=== PATIENT | male | born 1960 | race Caucasian/White ===

== ENCOUNTER → 2018-11-12 | Outpatient (CLI) | payer BC ==
[~2018-11-12] MED LIST: ALPRAZOLAM1 MG PO; ASPIRIN81 MG; BUSPIRONE HCL5 MG PO; CYMBALTA30 MG; FLOMAX0.4 MG PO; FUROSEMIDE INJ 10 MG/ML 4 ML VIAL ONE; HYZAAR 100-12.1 EACH; METOPROLOL; NORCO 10-325 T1 EACH; PANTOPRAZOLE SO40 MG PO; SIMVASTATIN20 MG PO
--- NOTE | 2018-11-12 18:28 | Diagnostic Imaging Report ---
Renal Scan with Lasix Washout Clinical information: 58 M with hydronephrosis, history of renal calculi and poorly function right kidney. Technique: Following intravenous administration of 10 mCi of Tc-99m MAG3, dynamic images of the kidneys in the posterior projection were obtained through 40 minutes. Lasix 40 mg was administered intravenously at 10 minutes post injection of the tracer. Report: Left kidney: Perfusion of the left kidney is prompt. The kidney has a normal reniform shape. Extraction of tracer from the blood pool is normal. Clearance of tracer from the renal parenchyma is prompt. The pelvicalyceal system is not dilated although a prominent calyx is identified in the upper pole. Mildly increased pooling of tracer is seen within the upper pole calyx. Some net drainage of tracer from the pelvicalyceal system is seen prior to administration of Lasix. Washout of tracer from the pelvicalyceal system following administration of Lasix is rapid with a T-1/2 of 5 minutes (normal less than 15 minutes). No significant stasis of tracer is seen within the left ureter. Right kidney: Perfusion to the right kidney is prompt. The perfused right kidney consists of only a small crescent of renal parenchyma in the upper pole. Extraction of tracer by the minimal amount of remaining renal parenchyma is normal. Clearance of tracer from the renal parenchyma is prompt. The pelvicalyceal system is dilated, predominantly the renal pelvis. Increased pooling of tracer is seen within the renal pelvis although the function of the kidney is not sufficient to fill the pelvicalyceal system to near capacity. No net drainage of tracer from the pelvicalyceal system is seen prior to administration of Lasix. No washout of tracer from the pelvicalyceal system is seen following administration of Lasix rendering an undefined T-1/2 for washout (normal less than 15 minutes). No significant stasis of tracer is seen within the right ureter. Differential renal function: The left kidney contributes 89% of total renal function and the right kidney contributes 11% (normal 43-57%). Impression: 1. The function of the left kidney is generally normal. No hydronephrosis is present. A prominent calyx is present in the upper pole. No physiologically significant obstruction of the renal collecting system is present. 2. The right kidney is very atretic although the minimal remaining renal parenchyma appears to function normally. The extent of scarring accounts for the decreased differential function of 11%. Moderate hydronephrosis is present. Function of the kidney is not sufficient to evaluate for physiologically significant obstruction of the pelvicalyceal system although it appears to be nearly completely obstructed. Signed by: Dr. Stefani Islas M.D. on 11/12/2018 6:25 PM
== END ==
LOC: NM 14:13
PROVIDERS: ATTEND Urology
DX: N13.30 Unspecified hydronephrosis (principal)
CPT/HCPCS: 78708; A9562; J1940